=== PATIENT | female | born 1990 | race African-American/Black ===

== ENCOUNTER 2019-11-02 23:28 | Emergency (ER) | payer MEDICAID, OTHER ==
[~2019-11-02] VITALS: Ht 175.3 cm; Wt 154.2 kg
[2019-11-03 00:13] VITALS: BP 126/74
[2019-11-03 02:13] LABS: Urine Bacteria FEW /hpf (None Seen); Urine Blood Negative /uL (Negative); Urine Specific Gravity 1.029 (1.001-1.035); Urine WBC 10 /hpf (0 - 5)
== END 2019-11-03 03:27 | disposition home or self-care (01) ==
LOC: ER 23:28
DX: O23.41 Unspecified infection of urinary tract in pregnancy, first trimester (principal); Z3A.01 Less than 8 weeks gestation of pregnancy
CPT/HCPCS: 81001; 81025